=== PATIENT | male | born 1950 | race African-American/Black ===

== ENCOUNTER 2018-08-22 12:49 | Emergency (ER) | payer OTHER, BC ==
[~2018-08-22] VITALS: Ht 185.4 cm; Wt 54.4 kg
[~2018-08-22 12:49] MED LIST: ADULT LOW DOSE81 MG PO; ALBUTEROL2.5 MG/31 INH; ASPIRIN325 PO; BACITRACIN15 GM; CARAFATE 1 GM TA1 G1 PO; CARISOPRODOL350 MG PO; COMBIVENT IH; DARVOCET-N 1001 EACH PO; DARVON-N100 MG PO; DEXILANT60 MG PO; ENSURE PLUS237 ML PO; FERREX 150150 MG PO; FISH OIL 1,0001 EAC5 PO; FLONASE 0.05%50 MCG NASAL; HYDROCODONE-AP1 EA11 PO; HYDROXYCHLOROQ200 M1 PO; KAPIDEX60 MG PO; LIORESAL 10 MG10 MG PO; LOPRESSOR 50 MG50 M1 PO; LORAZEPAM 0.50.5 MG PO; LOSARTAN-HCTZ1 EACH PO; MAGNESIUM100 MG PO; MEGESTROL400 MG/11 PO; MIRALAX17 GM PO; MULTIVITAMINS PO; NORCO 5-325 TA1 EACH PO; PERCOCET 5-3251 EACH PO; PERCOCET 7.5-31 EACH PO; PROTONIX40 M2 PO; REMERON 30 MG T30 M1 PO; RESTORIL30 MG PO; SERTRALINE HCL100 MG PO; SPIRIVA INH; SYMBICORT160 MCG/4. INH; TOPROL XL25 MG PO; VENTOLIN HFA 1818 GM INH; ZENPEP DR 20,01 EACH PO; ZOCOR 20 MG TAB20 M1 PO
[2018-08-22 14:03] LABS: HEMATOCRIT 36.5 % (42.0-52.0); HEMOGLOBIN 11.6 gm/dL (14.0-18.0); MCH 29.3 pg (26.0-34.0); MCHC 31.8 g/dL (28.0-37.0); MCV 92.2 fL (80.0-100.0); PLATELET COUNT 192 thou/uL (150-400); RBC 3.95 mil/uL (4.50-6.00); RDW 19.2 % (10.5-14.5); WBC 8.7 thou/uL (4.0-11.0)
[2018-08-22 14:05] LABS: ANION GAP 8 mmol/L (7-16); BUN 25 mg/dL (7-18); CALCIUM 9.3 mg/dL (8.5-10.1); CHLORIDE 106 mmol/L (98-107); CO2 28 mmol/L (21-32); CREATININE 1.5 mg/dL (0.7-1.3); GLUCOSE 164 mg/dL (74-106); POTASSIUM 4.1 mmol/L (3.5-5.1); SODIUM 142 mmol/L (136-145)
[2018-08-22 14:16] LABS: ALBUMIN 4.1 g/dL (3.4-5.0); LIPASE 108 U/L (73-393); MAGNESIUM 1.9 mg/dL (1.8-2.4); SGOT 34 U/L (15-37); SGPT 55 U/L (30-65); TOTAL BILIRUBIN 0.3 mg/dL (<0.1-1.0); TOTAL PROTEIN 8.3 g/dL (6.4-8.2); TROPONIN-I <0.06 ng/mL (<0.06)
[2018-08-22 14:37] LABS: ABSOLUTE NEUTROPHILS 7.4 thou/uL (1.4-8.2)
[2018-08-22 14:38] LABS: ANISOCYTOSIS 2+; SCHISTOCYTES OCCASIONAL
[2018-08-22] MEDS ORDERED: NORCO 5-325 TA1 EAC1 PO (15:26)
[2018-08-22] MEDS ORDERED: ONDANSETRON ODT8 MG PO (15:26)
[2018-08-22] MEDS ORDERED: PREDNISONE 20 M20 MG PO (15:26)
[2018-08-22] MEDS ORDERED: LEVAQUIN 500 M500 M1 PO (15:26)
[2018-08-22 16:15] VITALS: BP 153/88
--- NOTE | 2018-08-23 11:51 | EKG ---
[address] [address] [address] [place] [address] ELECTROCARDIOGRAM REPORT Name: VICTOR HUGO LOPEZ Room #: DEP Monica#: [id number] ������������������ Admission: 08/22/18 ������������������ Attend Phys: Discharge: 08/22/18 ������������������ Date of : 46 Report #: [id number] ����������������������������������������������������������������� [id number] THIS REPORT FOR: //name// 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: : 1950 Requested By: Delbert Felix Order Number: [id number] MD: Gigi Cook Measurements Intervals [place] Rate: 91 P: 89 DC: 162 QRS: 96 QRSD: 205 T: 79 QT: 367 QTc: 452 Interpretive Statements Sinus rhythm Biatrial enlargement Anteroseptal infarct, age indeterminate Nonspecific ST segment abnormalities Compared to ECG 07/05/2010 09:46:22 Myocardial infarct finding still present Electronically Signed On 08-23-2018 11:51:35 CDT by Gigi Cook [email or web address] ��������������������������������������������� <ELECTRONICALLY SIGNED> ���������������������������������������� By: Gigi Cook MD ��������������������������������������������� 08/23/18 1151 D: 06/1316 16 Gigi Cook MD /RAQUEL
== END 2018-08-22 16:15 | disposition home or self-care (01) ==
LOC: ER 12:49
PROVIDERS: Emergency Medicine
DX: K52.9 Noninfective gastroenteritis and colitis, unspecified (principal); J44.1 Chronic obstructive pulmonary disease with (acute) exacerbation; J20.9 Acute bronchitis, unspecified; J44.0 Chronic obstructive pulmonary disease with (acute) lower respiratory infection; R73.9 Hyperglycemia, unspecified; G89.29 Other chronic pain; I25.2 Old myocardial infarction; I73.9 Peripheral vascular disease, unspecified; I12.9 Hypertensive chronic kidney disease with stage 1 through stage 4 chronic kidney disease, or unspecified chronic kidney disease; N18.9 Chronic kidney disease, unspecified; M06.9 Rheumatoid arthritis, unspecified; Z95.5 Presence of coronary angioplasty implant and graft; Z87.11 Personal history of peptic ulcer disease; Z87.891 Personal history of nicotine dependence; Z88.2 Allergy status to sulfonamides; Z88.5 Allergy status to narcotic agent; Z88.8 Allergy status to other drugs, medicaments and biological substances; Z91.041 Radiographic dye allergy status; Z79.899 Other long term (current) drug therapy

== ENCOUNTER 2019-07-30 10:36 | Inpatient (IN) | payer OTHER, BC ==
[~2019-07-30] VITALS: Ht 185.4 cm; Wt 50.8 kg
[~2019-07-30 10:36] MED LIST changes: +LEVAQUIN 500 M500 M1 PO; +NORCO 5-325 TA1 EAC1 PO; +ONDANSETRON ODT8 MG PO; +PREDNISONE 20 M20 MG PO
[2019-07-30 10:38] VITALS: BP 174/93
[2019-07-30] MEDS ORDERED: MORPHABOND ER15 MG PO (10:54)
[2019-07-30 11:36] LABS: MCHC 32.8 g/dL (28.0-37.0); MONOCYTES 10.7 % (1.0-8.0); POLYS 63.2 % (36.0-66.0)
[2019-07-30 11:37] LABS: ABSOLUTE NEUTROPHILS 4.3 thou/uL (1.4-8.2); BASOPHILS 0.9 % (0.0-2.0); LYMPHOCYTES 16.2 % (24.0-44.0); MCH 29.1 pg (26.0-34.0); MCV 88.7 fL (80.0-100.0); PLATELET COUNT 170 thou/uL (150-400); RBC 2.08 mil/uL (4.50-6.00); RDW 16.4 % (10.5-14.5); WBC 6.8 thou/uL (4.0-11.0)
[2019-07-30 11:42] LABS: HEMOGLOBIN 6.1 gm/dL (14.0-18.0)
[2019-07-30 11:43] LABS: HEMATOCRIT 18.5 % (42.0-52.0)
[2019-07-30 11:54] LABS: ANION GAP 6 mmol/L (7-16); APTT 27.3 Seconds (24.5-32.8); BUN 26 mg/dL (7-18); CALCIUM 8.3 mg/dL (8.5-10.1); CHLORIDE 107 mmol/L (98-107); CO2 27 mmol/L (21-32); CREATININE 1.5 mg/dL (0.7-1.3); GLUCOSE 136 mg/dL (74-106); INR 1.2; POTASSIUM 4.5 mmol/L (3.5-5.1); PROTIME 11.8 Seconds (9.3-11.4); SODIUM 140 mmol/L (136-145)
[2019-07-30 12:05] LABS: ALBUMIN 3.7 g/dL (3.4-5.0); MAGNESIUM 1.8 mg/dL (1.8-2.4); SGOT 21 U/L (15-37); SGPT 20 U/L (30-65); TOTAL BILIRUBIN 0.2 mg/dL (<0.1-1.0); TOTAL PROTEIN 7.1 g/dL (6.4-8.2); TROPONIN-I <0.06 ng/mL (<0.06)
[2019-07-30 12:19] VITALS: BP 158/91
[2019-07-30 13:19] VITALS: BP 122/89
[2019-07-30 14:00] VITALS: BP 165/85
[2019-07-30 14:45] LABS: % SATURATION 24 % (20-39); IRON 47 ug/dL (65-175); TIBC 196 ug/dL (250-450)
--- NOTE | 2019-07-30 15:11 | NUR ---
14:30 PT. ARRIVED FROM THE ER TO UNIT. IV IN RIGHT AC INTACT AND FLUSHED WELL UPON ARRIVAL. PT. DENIES ANY CHEST PAIN AT THIS TIME, "JUST A LITLE LIGHT HEADED SOMETIMES". TRANSFUSION IS PENDING AND WILL ADMINISTER SOON POSSIBLE. PT. IS COLD BLANKETS APPLIED. PT. DENIES ANY NAUSEA AT PRESENT.
--- NOTE | 2019-07-30 15:14 | NUR ---
BLOOD TRANSUFION HAS STARTED, NO SIGN'S OF A REACTION. DENIES ANY CHEST PAIN AT THIS TIME, NO NAUSEA OR VOMITING EITHER. CONSULT FROM HEMATOLOGY GROUP CALLED AND RETURNED AT THIS TIME, MD WILL ROUND ON PT. IN AM.
[2019-07-30 16:00] VITALS: BP 147/84
--- NOTE | 2019-07-30 18:11 | NUR ---
BLOOD TRANSFUSION IS COMPLETE AT THIS TIME SHOWS NO SIGN'S OF ANY REACTION, VITAL SIGN'S WNL AND BASELINE. DENIES ANY CHEST PAIN AND NO SOB. USES RESCUE INHALER THAT HE BROUGHT IN HE SAID "SOMETIMES". UP EATING DINNER NOW, MORE PERKY IN AFFECT, NO SO TIRED ACTING ANYMORE. WATCHING TV DENIES ANY GI DISCOMFORT.
[2019-07-30 19:05] VITALS: BP 156/87
[2019-07-30] MEDS ORDERED: TRAZODONE HCL100 MG PO (20:47)
[2019-07-30 21:27] LABS: HEMATOCRIT 23.5 % (42.0-52.0); HEMOGLOBIN 7.7 gm/dL (14.0-18.0)
[2019-07-31] VITALS (9 sets, daily range): BP systolic 134–173; BP diastolic 74–93
--- NOTE | 2019-07-31 04:22 | NUR ---
PT AOX4. NO EVENTS OVERNIGHT. DENIES CHEST PAIN, DIZZINESS OR SOB. PT HAD 1 UNIT TRANSFUSION YESTERDAY, WITHOUT H&H RECHECK. NOC MORTGAGE LOAN OFFICER ORIGINATOR NOTIFIED, RECHECK H&H, HEMOGLOBIN 7.7. PT VOIDING PER URINAL. INDEPENDENT IN HIS ROOM. WILL CONTINUE TO FOLLOW POC.
[2019-07-31 05:18] LABS: HEMOGLOBIN 6.8 gm/dL (14.0-18.0)
[2019-07-31 05:21] LABS: HEMATOCRIT 20.4 % (42.0-52.0); MCH 29.9 pg (26.0-34.0); MCHC 33.3 g/dL (28.0-37.0); MCV 89.7 fL (80.0-100.0); RBC 2.27 mil/uL (4.50-6.00); RDW 16.4 % (10.5-14.5); WBC 6.2 thou/uL (4.0-11.0)
[2019-07-31 05:24] LABS: CREATININE 1.1 mg/dL (0.7-1.3); POTASSIUM 4.6 mmol/L (3.5-5.1)
--- NOTE | 2019-07-31 10:58 | EKG ---
[facility] [place] [address] ELECTROCARDIOGRAM REPORT Name: VICTOR HUGO LOPEZ Room #: 206-P ADM IN M.R.#: [id number] Admission: 07/30/19 Attend Phys: Jordan Pelaez MD Discharge: Date of : 46 Report #: [id number] THIS REPORT FOR: cc: Tone Oconnor MD, Harry MD Park, Jin S. 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: [facility] : 1950 Requested By: Delbert Felix Order Number: [id number] MD: Gigi Cook Measurements Intervals [place] Rate: 87 P: 82 NM: 163 QRS: 81 QRSD: 134 T: 79 QT: 362 QTc: 436 Interpretive Statements Sinus rhythm Consider right atrial enlargement Probable left ventricular hypertrophy Nonspecific ST segment abnormalities Compared to ECG 08/22/2018 13:17:06 Left ventricular hypertrophy now present Myocardial infarct finding still present Electronically Signed On 07-31-2019 10:56:05 CDT by Gigi Cook [email or web address] <ELECTRONICALLY SIGNED> By: Gigi Cook MD 07/31/19 1056 1143 1143 Gigi Cook MD /EPI
[2019-07-31 15:02] LABS: HEMATOCRIT 25.8 % (42.0-52.0); HEMOGLOBIN 8.7 gm/dL (14.0-18.0)
--- NOTE | 2019-07-31 17:43 | NUR ---
PT CARE ASSUMED AT 0700. ASSESSMENTS CHARTED. MEDICATION CHARTED. PT RECIEVED 1 UNIT RBC STARTING 1050, ENDING 1515, NO REACTION. PT RECEIVED EPOETIN INJ. PT DISCHARGED. TELE D/C'D. IV D/C'D.
--- NOTE | 2019-08-03 09:33 | HC ---
[facility] [place] [address] CONSULTATION Name: VICTOR HUGO LOPEZ Room #: 206-P [facility] IN M.R.#: [id number] Admission: 07/30/19 Attend Phys: Jordan Pelaez MD Discharge: 07/31/19 Date of : 46 Report #: [id number] THIS REPORT FOR: cc: Tone Oconnor MD, Harry MD McKittrick, Richard James MD ~ CC: JEREMY ROQUE MD REQUESTING PHYSICIAN: Jordan Pelaez MD REASON FOR CONSULTATION: Iron deficiency anemia as well as chronic kidney disease related anemia. 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 He follows with Dr. Rosita Basilio. His last darbepoetin injection was on 05/26/2019. He was a no show for an appointment in 04/26/2019, has not had his EPO since that April date. It may be because of coronavirus shut down that things were discombobulated. The patient reports his last IV iron was some time in either 2019 or 2018. Note that his blood tests here show iron replete state. Retic count was not drawn before the transfusion, so I cannot assess, but most likely this is an under production or hypoproliferative anemia. The patient denies any recent blood in his urine or stool, any black tarry stool, any hematemesis or nosebleeds. He also has not had any unusual headaches, mouth sores, sinus difficulties, new arm or leg swelling. He does have some chronic right leg swelling occasionally. He does have occasional loose bowel thought to be from chronic pancreatic insufficiency from chronic pancreatitis in the past. 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 SOCIAL HISTORY: Retired from [employer] as an investigative agent, has a support of at home by his description. [address] [address] CONSULTATION Name: VICTOR HUGO LOPEZ Room #: 206-P [facility] IN [facility].#: [id number] Admission: 07/30/19 Attend Phys: Jordan Pelaez MD Discharge: 07/31/19 Date of : 46 Report #: [id number] FAMILY HISTORY: No one else with blood issues by his description. CURRENT MEDICATIONS: Include trazodone 100 mg at bedtime, albuterol sulfate, respiratory therapy q.i.d., morphine extended release 15 b.i.d., baclofen 5 b.i.d., famotidine 10 b.i.d., vggivn-kbiamgbs-gdvpcer 3 capsule with meals, ondansetron p.r.n., fentanyl p.r.n., Tylenol p.r.n., written for the epoetin 40,000 units one time. Note, also in the past outside he has been on losartan, hydrochlorothiazide, Protonix, MiraLax, Symbicort, and fluticasone nasal spray as well as hydroxychloroquine 200 mg daily. LABORATORY DATA: Here was notable for BUN of 18, creatinine of 1.1, bilirubin 0.2. Liver functions normal. Albumin 3.7, iron of 47, percent saturation 24, TIBC 196. C-reactive protein 11.8. Coags were normal. White count 6.2, hemoglobin on admit 6.1. Transfuse 7.7 last night, 6.8 this morning with plans for another unit of blood. MCV 88.7 on admit. RDW 16.4, platelets 170 yesterday, 149 today. Differential without acute changes. Did have a few extra monocytes and eosinophils. PHYSICAL EXAMINATION: GENERAL: The patient appears his stated age. VITAL SIGNS: Height is 6 feet 1, 185.4 cm, weight 112 pounds or 50.8 kilograms. Blood pressure is 173/93, O2 sat 100%, pulse 87, afebrile at 98.8, respirations 16. MOOD: The patient is alert, pleasant, conversant. NEUROLOGIC: He is moving all extremities. Speech and thought pattern appear to be normal. LUNGS: Mostly clear, though slightly distant. No definite rhonchi or rales. HEART: Appears regular rate. LYMPHATICS: No enlarged lymph nodes, though some very small smudges underneath the right axilla but that is the site of his IVs. ABDOMEN: Scaphoid without masses. EXTREMITIES: Without clubbing or cyanosis. There may be some trace edema, right leg. ASSESSMENT AND PLAN: 1. Anemia related to iron deficiency in the past and also chronic kidney disease. The patient's iron appears were replete, probably anemia is most likely contributory due to several missed doses of erythropoietin agents. We will write for 40,000 units one time. No plans for transfusion. Will be able to follow up as an outpatient with Dr. Rosita Basilio or someone in his office. 2. Emphysema and chronic obstructive pulmonary disease. Continues inhalation therapy, medicines as well as oxygen supplementation. 3. Pancreatic insufficiency. Continue enzyme replacements with meals. 4. History of peptic ulcer disease. Continue acid gabe agents. [facility] [address] [place] [address] CONSULTATION Name: VICTOR HUGO LOPEZ Room #: 206-P [facility] IN ..#: [id number] Admission: 07/30/19 Attend Phys: Jordan Pelaez MD Discharge: 07/31/19 Date of : 46 Report #: [id number] 5. Renal insufficiency and proteinuria. Follows with renal at . 6. Rheumatoid arthritis. Continues hydroxychloroquine with Dr. Lillie Bolivar. 7. Chronic obstructive pulmonary disease, emphysema. Follows with Dr. Richardson Roque. 8. Coronary artery disease with coronary artery bypass graft in the past and peripheral vascular disease. Followed by others. 9. Hyperlipidemia. Statins as per others. 10. Chronic pain. Morphine and baclofen per others. Thank you for this consult. The patient should follow up with Dr. Rosita Basilio or his office upon discharge. <ELECTRONICALLY SIGNED> By: Zacarias Miramontes MD 08/03/19 0933 0814 0849 Zacarias Miramontes MD /nt
== END 2019-07-31 17:18 | disposition home or self-care (01) | DRG 812 ==
LOC: ER 10:36 → EROBS 12:17 → 2N 12:38
PROVIDERS: Emergency Medicine; Nurse Practitioner; Nurse Practitioner Family; ADMIT Hospitalist
PROC: 30233N1 Transfusion of Nonautologous Red Blood Cells into Peripheral Vein, Percutaneous Approach (ICD-10-PCS; principal; 2019-07-30)
DX: D50.9 Iron deficiency anemia, unspecified (principal); K86.1 Other chronic pancreatitis; D62 Acute posthemorrhagic anemia; F41.9 Anxiety disorder, unspecified; N18.9 Chronic kidney disease, unspecified; M06.9 Rheumatoid arthritis, unspecified; I73.9 Peripheral vascular disease, unspecified; E78.5 Hyperlipidemia, unspecified; J43.9 Emphysema, unspecified; K86.89 Other specified diseases of pancreas; I25.10 Atherosclerotic heart disease of native coronary artery without angina pectoris; G89.29 Other chronic pain; F12.90 Cannabis use, unspecified, uncomplicated; D63.1 Anemia in chronic kidney disease; I12.9 Hypertensive chronic kidney disease with stage 1 through stage 4 chronic kidney disease, or unspecified chronic kidney disease; D75.89 Other specified diseases of blood and blood-forming organs; Z90.49 Acquired absence of other specified parts of digestive tract; Z86.73 Personal history of transient ischemic attack (TIA), and cerebral infarction without residual deficits; Z95.1 Presence of aortocoronary bypass graft; I25.2 Old myocardial infarction; Z88.2 Allergy status to sulfonamides; Z88.8 Allergy status to other drugs, medicaments and biological substances; Z88.6 Allergy status to analgesic agent; Z91.041 Radiographic dye allergy status; Z87.891 Personal history of nicotine dependence; Z87.11 Personal history of peptic ulcer disease
CPT/HCPCS: 10081

== ENCOUNTER 2019-12-02 19:05 | Inpatient (IN) | payer OTHER, BC ==
[~2019-12-02] VITALS: Ht 185.4 cm; Wt 44.9 kg
--- NOTE | ~2019-12-02 | EKG ---
[facility] [place] [address] ELECTROCARDIOGRAM REPORT Name: VICTOR HUGO LOPEZ DEAN Room #: 213-P ADM IN M.R.#: [id number] Admission: 12/02/19 Attend Phys: Carine Augustine MD Discharge: Date of : 46 Report #: [id number] THIS REPORT FOR: cc: Emy Chu MD, Shari L. MD Epiphany, Epiphany MD ~ THIS REPORT FOR: //name// [facility] Test Date: 2019-12-04 Test Time: 06:36:05 Pat Name: VICTOR HUGO LOPEZ Department: Room: 213 P Gender: M [place] Guide: AN01 : 1950 Requested By: Carine Augustine Order Number: [id number] MD: Measurements Intervals [place] Rate: 95 P: 82 [place]: 146 QRS: 73 QRSD: 80 T: 62 QT: 360 QTc: 453 Interpretive Statements Sinus rhythm Low voltage, extremity leads Probable anteroseptal infarct, old Compared to ECG 12/02/2019 19:23:15 Low QRS voltage now present Sinus tachycardia no longer present Myocardial infarct finding still present [email or web address] By: [id number] [id number] Epiphany Epiphany, [place] /EPI
[~2019-12-02 19:05] MED LIST changes: +MORPHABOND ER15 MG PO; +TRAZODONE HCL100 MG PO
[2019-12-02 19:12] VITALS: BP 116/79
[2019-12-02 19:43] LABS: ABSOLUTE NEUTROPHILS 5.5 thou/uL (1.4-8.2); BASOPHILS 0.7 % (0.0-2.0); EOSINOPHILS 0.5 % (0.0-3.0); HEMOGLOBIN 10.3 gm/dL (14.0-18.0); MCHC 32.1 g/dL (28.0-37.0); MCV 90.3 fL (80.0-100.0); MONOCYTES 5.7 % (1.0-8.0); PLATELET COUNT 185 thou/uL (150-400); POLYS 84.1 % (36.0-66.0); RBC 3.54 mil/uL (4.50-6.00); RDW 16.7 % (10.5-14.5); WBC 6.5 thou/uL (4.0-11.0)
[2019-12-02 19:46] LABS: ANION GAP 15 mmol/L (7-16); BUN 55 mg/dL (7-18); CALCIUM 8.8 mg/dL (8.5-10.1); CHLORIDE 100 mmol/L (98-107); CO2 24 mmol/L (21-32); CREATININE 3.2 mg/dL (0.7-1.3); GLUCOSE 104 mg/dL (74-106); POTASSIUM 5.6 mmol/L (3.5-5.1); SODIUM 139 mmol/L (136-145)
[2019-12-02] MEDS ORDERED: NORVASC 2.5 MG2.5 M1 PO (19:47)
[2019-12-02] MEDS ORDERED: BENICAR20 MG PO (19:47)
[2019-12-02 19:57] LABS: ALBUMIN 4.1 g/dL (3.4-5.0); LIPASE 59 U/L (73-393); SGOT 16 U/L (15-37); SGPT 14 U/L (30-65); TOTAL BILIRUBIN 0.5 mg/dL (0.2-1.0); TOTAL PROTEIN 8.2 g/dL (6.4-8.2); TROPONIN-I <0.06 ng/mL (<0.06)
[2019-12-02 21:01] LABS: URINE BILIRUBIN 1+ (Negative); URINE BLOOD TRACE (Negative); URINE CLARITY CLEAR; URINE COLOR YELLOW; URINE GLUCOSE-RANDOM* NEGATIVE (Negative); URINE KETONES TRACE (Negative); URINE LEUKOCYTES-REFLEX NEGATIVE (Negative); URINE NITRITE-REFLEX NEGATIVE (Negative); URINE PROTEIN (DIPSTICK) 2+ (Negative); URINE SPECIFIC GRAVITY 1.025 (1.005-1.035); URINE UROBILINOGEN 0.2 E.U./dl (0.2-1.0)
[2019-12-02 21:13] LABS: SQUAMOUS 0-3 Few /LPF (0-3); URINE WBC-REFLEX 0-5 Rare /HPF (0-5)
[2019-12-02 21:14] LABS: BACTERIA-REFLEX 1-9 Few /HPF (None Seen); CRYSTALS None Seen /LPF (None Seen); FINE GRANULAR CASTS 0-3 Few /LPF (None Seen); HYALINE CASTS 0-3 Few /LPF (None Seen); MUCUS 0-3 Light strn/LPF (None Seen); URINE RBC 3-10 Few /HPF (0-2)
[2019-12-02 22:01] VITALS: BP 149/86
[2019-12-02 22:03] VITALS: BP 149/86
--- NOTE | 2019-12-02 22:17 | NUR ---
Called to give report but was told RN is busy and will call back
[2019-12-02 23:24] VITALS: BP 141/88
--- NOTE | 2019-12-03 03:16 | NUR ---
PT NEW ADMIT LAST NIGHT. ALERT AND ORIENTED. INITIAL VITALS STABLE. C/O ABDOMINAL PAIN RATED AT 9/10. DENIES CHEST PAIN. REPORTS PREVIOUS NAUSEA AND VOMITING IN THE LAST FEW DAYS NO WITHNESSED ON THE UNIT. CONSENT FORMS SIGNED. PT HAS A SBO, KEPT NPO OVERNIGHT. WILL CONTINUE TO MONITOR
[2019-12-03 03:32] VITALS: BP 152/85
[2019-12-03 04:10] LABS: HEMATOCRIT 23.6 % (42.0-52.0); MCH 29.7 pg (26.0-34.0); MCHC 32.9 g/dL (28.0-37.0); MCV 90.4 fL (80.0-100.0); RBC 2.61 mil/uL (4.50-6.00); RDW 16.4 % (10.5-14.5); WBC 6.1 thou/uL (4.0-11.0)
[2019-12-03 04:34] LABS: HEMOGLOBIN 7.8 gm/dL (14.0-18.0)
[2019-12-03 05:57] LABS: CALCIUM 7.9 mg/dL (8.5-10.1); CREATININE 2.9 mg/dL (0.7-1.3); POTASSIUM 5.2 mmol/L (3.5-5.1)
--- NOTE | 2019-12-03 07:44 | EKG ---
[facility] [place] [address] ELECTROCARDIOGRAM REPORT Name: VICTOR HUGO LOPEZRODRIGUEDORON Room #: 213-P ADM IN M.R.#: [id number] Admission: 12/02/19 Attend Phys: Carine Augustine MD Discharge: Date of : 46 Report #: [id number] THIS REPORT FOR: cc: Emy Chu MD, Shari L. 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1950 Requested By: Augustin Doe Order Number: [id number] MD: Feed Kam Measurements Intervals [place] Rate: 111 P: 83 [place]: 150 QRS: 67 QRSD: 77 T: 66 QT: 314 QTc: 427 Interpretive Statements Sinus tachycardia LAE, consider biatrial enlargement Anterior infarct, old Compared to ECG 07/30/2019 11:43:54 Sinus rhythm no longer present Electronically Signed On 12-03-2019 7:44:37 CDT by Fede Kam [email or web address] <ELECTRONICALLY SIGNED> By: Fede Kam MD, [facility] 12/03/19 0744 22 22 Fede Kam MD, [facility] /EPI
[2019-12-03 07:49] VITALS: BP 148/78
[2019-12-03 09:30] LABS: HEMATOCRIT 24.4 % (42.0-52.0); HEMOGLOBIN 7.8 gm/dL (14.0-18.0)
[2019-12-03 12:59] VITALS: BP 141/75
--- NOTE | 2019-12-03 13:53 | NUR ---
ATTEMPTED OT EVAL AT 1345, PT. PARTICIPATED IN PLOF INTERVIEW AND ALLOWED MMT AND ROM ASSESSMENT. REFUSING TO PARTICIPATE IN FUNCTIONAL MOBILITY AND SELF-CARES ASSESSMENT. WILL RE-ATTEMPT TOMORROW.
--- NOTE | 2019-12-03 17:01 | NUR ---
ASSESSMENT CHARTED. PT ALERT AND ORIENTED. VSS. RECEIVED PRN PAIN MED FOR ABD PAIN WITH PARTIAL RELEIF. SEEN BY DR. WU. NEW ORDERS NOTED. NG TUBE INSERTED ON THE RIGHT NARES TO LIS. AT THE BEDSIDE.
--- NOTE | 2019-12-03 17:14 | NUR ---
Case opened to follow for dc planning. Case discussed with the care team and chart reveiwed. Pt admitted with multiple medication issues and complex medical history. He is being seen by CTS,Surgery, GI,Renal and IR. Possible surgery due to SBO with a large complex hematoma. Unable to visit with pt today due to workup and consultants. [place] 13 steps to enter. He lives with his who has been at bedside throughout the day. He was evaluated by therapy today and is a chronic home o2 pt due to copd. He uses 4liters at home and has a cane for gait. Will follow for possible hh or rehab needs pending his progress.
[2019-12-03 17:23] LABS: HEMATOCRIT 23.7 % (42.0-52.0); HEMOGLOBIN 7.4 gm/dL (14.0-18.0)
[2019-12-03 20:15] VITALS: BP 153/84
[2019-12-03 20:40] LABS: URINE BILIRUBIN NEGATIVE (Negative); URINE BLOOD TRACE (Negative); URINE CLARITY CLEAR; URINE COLOR YELLOW; URINE GLUCOSE-RANDOM* NEGATIVE (Negative); URINE KETONES 1+ (Negative); URINE LEUKOCYTES NEGATIVE (Negative); URINE NITRITE NEGATIVE (Negative); URINE PROTEIN (DIPSTICK) TRACE (Negative); URINE UROBILINOGEN 0.2 E.U./dl (0.2-1.0)
[2019-12-03 20:46] LABS: URINE PROTEIN-RANDOM* 42.6 mg/dL (<11.9)
[2019-12-04 01:01] LABS: HEMATOCRIT 24.9 % (42.0-52.0); HEMOGLOBIN 7.6 gm/dL (14.0-18.0)
[2019-12-04 01:13] LABS: ALBUMIN 3.2 g/dL (3.4-5.0); CALCIUM 7.8 mg/dL (8.5-10.1); CREATININE 2.4 mg/dL (0.7-1.3); PHOSPHORUS 4.1 mg/dL (2.5-4.9)
--- NOTE | 2019-12-04 03:34 | NUR ---
CARE ASSUMED AT 1900. PT NPO DUE TO SBO. C/O ABDOMINAL PAIN, ALLEVIATED BY PRN ANALGESICS. NG TUBE TO LOW INTERMITTENT SUCTIONING WITH MINIMAL OUTPUT. DENIES CHEST PAIN, NAUSEA OR VOMITING. WILL CONTINUE TO MONITOR.
[2019-12-04 04:00] VITALS: BP 148/82
[2019-12-04 07:38] VITALS: BP 150/81
[2019-12-04 12:07] VITALS: BP 146/73
[2019-12-04 15:55] VITALS: BP 149/78
--- NOTE | 2019-12-04 17:42 | NUR ---
PT ALERT AND ORIENTED. VSS. NG TUBE DISCONTINUED. UP IN THE CHAIR THIS SHIFT. AT THE BEDSIDE. WILL CONTIUE WITH THE PLAN OF CARE.
[2019-12-04 19:49] VITALS: BP 134/89
[2019-12-04 20:00] VITALS: BP 116/41
[2019-12-05 03:30] VITALS: BP 155/80
[2019-12-05 04:50] LABS: ALBUMIN 3.2 g/dL (3.4-5.0); CALCIUM 8.2 mg/dL (8.5-10.1); CREATININE 1.8 mg/dL (0.7-1.3); PHOSPHORUS 3.4 mg/dL (2.5-4.9); POTASSIUM 4.8 mmol/L (3.5-5.1)
--- NOTE | 2019-12-05 04:54 | NUR ---
ASSUMED CARE 1899. PT ALERT AND ORIENTED. NG TUBE DC'd YESTERDAY. PT STILL C/O ABDOMINAL PAIN ALLEVIATED BY PRN PAIN MEDS. RECEIVED A SUPPOSITORY YESTERDAY, STILL AWAIT FOR RESULTS. DENIES NAUSEA AND VOMITING. REPORTS MINIMAL EPIGASTRIC PAIN WHILE GETTING UP. NO OTHER CONCERN AT THIS TIME. WILL FOLLOW POC.
[2019-12-05 08:00] VITALS: BP 147/76
--- NOTE | 2019-12-05 17:51 | NUR ---
PT ALERT AND ORIENTED. VSS. PRN PAIN MED GIVEN FOR ABD PAIN WITH PARTIAL RELIEF. STARTED ON CLEAR LIQUID. HAD EMESIS X1. PROVIDER AWARE. SR/ST ON TELE.
[2019-12-05 19:58] VITALS: BP 164/80
[2019-12-06 04:55] LABS: CALCIUM 8.1 mg/dL (8.5-10.1); CREATININE 1.5 mg/dL (0.7-1.3); POTASSIUM 4.4 mmol/L (3.5-5.1); TOTAL BILIRUBIN 0.4 mg/dL (0.2-1.0); TOTAL PROTEIN 6.7 g/dL (6.4-8.2)
[2019-12-06 05:15] VITALS: BP 184/98
[2019-12-06 05:18] LABS: ALBUMIN 3.3 g/dL (3.4-5.0)
--- NOTE | 2019-12-06 07:33 | NUR ---
PT WITH CON'T C/O ABD PAIN, PRN MEDS GIVEN THRU THE NOC, VSS HR ST AND BP ELEVATED BP MED GIVEN EARLY THIS AM, FLUIDS INFUSING IN R FA AND PT VOIDING PER URINAL, TOLERATING CLEAR LIQUID DIET, REPORT GIVEN TO NEXT SHIFT TO CON'T WITH PPOC.
[2019-12-06 10:52] VITALS: BP 178/95
--- NOTE | 2019-12-06 13:00 | NUR ---
Pt voices no food intake since 11/26 (9 days), taking in very little liquids. May need to consider TPN as pt is severely malnourished and has no interest in eating or drinking.
[2019-12-06 16:00] VITALS: BP 149/91
[2019-12-06 17:17] LABS: CALCIUM 7.8 mg/dL (8.5-10.1); CREATININE 1.9 mg/dL (0.7-1.3); POTASSIUM 4.4 mmol/L (3.5-5.1)
--- NOTE | 2019-12-06 19:26 | NUR ---
ASSUMED CARE AT 0700. AFEBRILE. NO BM. PATIENT ON 4L OF OXXYGEN. PRN FENTANYL GIVEN TWICE FOR SEVERE PAIN AND WAS EFFECTIVE IN ALLEVIATING PAIN. PATIENT'S WAS WITH THE PATIENT THROUGHOUT THE DAY AND WAS UPDATED AND EDUCATED ON PATIENT'S CONDITION AND PLAN OF CARE. ECHO PLANNED FOR TONIGHT. SURGERY PLANNED FOR TOMORROW AT 0830 AND PATIENT IS NPO. NO ANTICOAGULANTS GIVEN. PT/OT SAW PATIENT TODAY. STANDBY ASSIST. CARDIOLOGY CONSULTED. COVID TEST RESULTS PENDING. PATIENT SLOWLY PROGRESSING TOWARDS THE PLAN OF CARE.
[2019-12-06 20:00] VITALS: BP 156/62
--- NOTE | 2019-12-06 22:28 | 2DMMODE ---
[facility] [place] [address] 2 D/M-MODE ECHOCARDIOGRAM Name: LOPEZVICTOR HUGO MARVIN DEAN Room #: 213-P ADM IN M.R.#: [id number] Admission: 12/02/19 Attend Phys: Carine Augustine MD Discharge: Date of : 46 Report #: [id number] THIS REPORT FOR: cc: Eym Chu MD, Shari L. MD Lammoglia, Francisco J. MD ~ APPROVED REPORT Study performed: 12/06/2019 20:00:06 EXAM: Comprehensive 2D, Doppler, and color-flow Echocardiogram Patient Location: Bedside Room #: 213 Status: on-call BSA: 1.60 HR: 118 bpm BP: 149/91 mmHg Rhythm: Tachycardia Other Information Study Quality: Technically Difficult Technically limited study due to lung disease, body habitus. Indications COPD CAD Hypertension/HDD Pre-op 2D Dimensions RVDd: 31.60 mm IVSd: 12.61 (7-11mm) LVOT Diam: 19.78 (18-24mm) LVDd: 31.74 mm PWd: 12.60 (7-11mm) LVDs: 21.31 (25-40mm) Aortic Root: 32.70 mm IVC: 7.00 mm Volumes Left Atrial Volume (Systole) Single Plane 4CH: 15.66 mL Single Plane 2CH: 32.26 mL LA ESV Index: 17.00 mL/m2 Aortic Valve [facility] [address] [address] 2 D/M-MODE ECHOCARDIOGRAM Name: VICTOR HUGO LOPEZ DEAN Room #: 213- ADM IN M.R.#: [id number] Admission: 12/02/19 Attend Phys: Lauren Gorman Discharge: Date of : 46 Report #: [id number] Peak Obie.: 1.44 m/s AO Peak Gr.: 8.30 mmHg LVOT Max P.34 mmHg LVOT Max V: 1.15 m/s MANISHA Vmax: 2.46 cm2 Mitral Valve E/A Ratio: 0.6 MV Decel. Time: 103.25 ms MV E Max Obie.: 0.70 m/s MV A Obie.: 1.27 m/s MV PHT: 29.94 ms IVRT: 113.03 ms Pulmonary Valve PV Peak Obie.: 1.32 m/s PV Peak Gr.: 7.01 mmHg Tricuspid Valve RAP Estimate: 5.00 mmHg Left Ventricle The left ventricle is normal size. Mild concentric left ventricular hypertrophy. Left ventricular systolic function is hyperdynamic. Small thrombus noted in left ventricular apex. LVEF is 70%. Transmitral Doppler flow pattern suggests impaired LV relaxation. Right Ventricle The right ventricle is normal size. The right ventricular systolic function is normal. Atria The left atrium size is normal. The right atrium size is normal. Aortic Valve Aortic valve is mildly calcified. No aortic regurgitation is present. There is no aortic valvular stenosis. Mitral Valve Mild mitral annular calcification. There is no mitral valve regurgitation noted. No evidence of mitral valve stenosis. Tricuspid Valve The tricuspid valve is normal in structure. There is no tricuspid valve regurgitation noted. Unable to assess PA pressure. [facility] [address] [place] [address] 2 D/M-MODE ECHOCARDIOGRAM Name: VICTOR HUGO LOPEZ DEAN Room #: 213-[facility] IN [facility].#: [id number] Admission: 12/02/19 Attend Phys: Lauren Gorman Discharge: Date of : 46 Report #: [id number] Pulmonic Valve The pulmonary valve appears grossly normal. There is no pulmonic valvular regurgitation. Great Vessels The aortic root is normal in size. IVC is normal in size and collapses >50% with inspiration. Pericardium There is no pericardial effusion. <Conclusion> The left ventricle is normal size. LVEF is 70%. Aortic valve is mildly calcified. Mild mitral annular calcification. The tricuspid valve is normal in structure. There is no tricuspid valve regurgitation noted. Unable to assess PA pressure. The pulmonary valve appears grossly normal. There is no pericardial effusion. <ELECTRONICALLY SIGNED> By: Terell Boles MD 12/06/198 27 2228 Terell Boles MD /INF
[2019-12-07 02:08] VITALS: BP 125/86
[2019-12-07 03:54] VITALS: BP 164/99
[2019-12-07 04:08] LABS: HEMATOCRIT 26.2 % (42.0-52.0); HEMOGLOBIN 8.4 gm/dL (14.0-18.0); MCHC 32.1 g/dL (28.0-37.0); MCV 90.4 fL (80.0-100.0); RBC 2.9 mil/uL (4.50-6.00); RDW 16.3 % (10.5-14.5)
[2019-12-07 04:37] LABS: ALBUMIN 3.4 g/dL (3.4-5.0); CREATININE 1.9 mg/dL (0.7-1.3); TOTAL BILIRUBIN 0.6 mg/dL (0.2-1.0); TOTAL PROTEIN 6.5 g/dL (6.4-8.2)
[2019-12-07 04:46] LABS: MAGNESIUM 0.8 mg/dL (1.8-2.4)
--- NOTE | 2019-12-07 07:51 | NUR ---
ASSUMED CARE 1900. PT ALERT AND ORIENTED. VITALS STABLE WITH ELEVATED BP. ON SCHEDULED METOPROLOL. C/O ABDOMINAL PAIN, ALLEVIATED BY PRN FENTANYL. PT EXPRESSES CONCERNS ABOUT PENDING PROCEDURE THIS MORE.A COUPLE NAUSEA AND VOMITING EPISODE OVERNIGHT. MAINTAINED ON 4 L NC, SATS > 95. NPO SINCE MIDNIGHT. REPORTS GIVEN TO THE PRE-OP THIS AM. NO OTHER CONCERNS. .
[2019-12-07 12:00] VITALS: BP 164/99
[2019-12-07 15:40] VITALS: BP 143/81
[2019-12-07 15:55] VITALS: BP 143/81
--- NOTE | 2019-12-07 16:05 | HC ---
[facility] [place] [address] CONSULTATION Name: VICTOR HUGO LOPEZRODRIGUEDORON Room #: 213-P ADM IN M.R.#: [id number] Admission: 12/02/19 Attend Phys: Carine Augustine MD Discharge: Date of : 46 Report #: [id number] THIS REPORT FOR: cc: Emy Chu MD, Shari L. MD Forman, John M. MD ~ CC: Carine Chu DATE OF SERVICE: 12/04/2019 We were asked to see the patient by Dr. Augustine. HISTORY OF PRESENT ILLNESS: The patient is a 69-year-old with a right femoral artery aneurysm. The patient has multiple medical problems and appears to have been admitted with a small-bowel obstruction. The patient has a history of an aortobifemoral bypass approximately 10 years ago. There is a pulsatile mass in the right groin that the patient says has been followed for at least a year and this probably represents a pseudoaneurysm related to anastomotic disruption at the right femoral artery. The patient was admitted on 12/02/2019. The patient has a history of chronic pancreatitis and was seen in the Emergency Department with nausea, vomiting and abdominal pain over the last 5 days. The patient states the pain was 10/10 and similar to previous pancreatitis, discomfort, with dark black emesis. The patient also apparently had a melanotic looking stool earlier in the day. In the hospital, the patient has responded to conservative therapy of IV, NG, and p.o. Other medical problems include liver disease, peptic ulcer disease 2004, myocardial infarct with coronary bypass, bilateral carotid endarterectomy, chronic renal dysfunction, anemia requiring blood transfusions starting 05/2017. History of pancreatitis, important chronic obstructive pulmonary disease, rheumatoid arthritis. HOME MEDICATIONS: Include trazodone; omega 3 fatty acids; multivitamins; morphine; amlodipine; olmesartan; albuterol nebulizer; megestrol; budesonide; formoterol inhaler; fluticasone; hydroxychloroquine; losartan; hydrochlorothiazide; amylase, lipase, protease; pantoprazole; sertraline; tiotropium. ALLERGIES: LISINOPRIL causes hives and hypotension; PREGABALIN causes swelling, hives, hypotension; RED DYE causes hives, swelling, hypotension; CODEINE causes gut upset from ORAL SYRUP WITH CODEINE ONLY; SULFA causes GI upset. [facility] [address] [place] [address] CONSULTATION Name: VICTOR HUGO LOPEZ Room #: 213-P [facility] IN [facility]#: [id number] Admission: 12/02/19 Attend Phys: Carine Augustnie MD Discharge: Date of : 46 Report #: [id number] SOCIAL HISTORY: Former tobacco smoker, former alcohol user. REVIEW OF SYSTEMS: CONSTITUTIONAL: Denies fever, chills. Has chronic weight loss. EYES: Negative for eye pain or visual change. HENT: Negative for headache, rhinorrhea, sore throat. RESPIRATORY: Chronic obstructive pulmonary disease, but no current cough or recent shortness of breath. CARDIAC: Denies chest pain, palpitations. GASTROINTESTINAL: As mentioned in the HPI. GENITOURINARY: No burning, frequency, urgency. MUSCULOSKELETAL: No bone or joint pain. SKIN: No rash or infection. NEUROLOGIC: No motor or sensory problems. ENDOCRINE: No goiter, no tremor. HEMATOLOGIC AND LYMPHATIC: No easy bleeding or bruisability. We do note anemia. PHYSICAL EXAMINATION: GENERAL: The patient is in bed, awake, alert, seems comfortable. NG tube has been removed. VITAL SIGNS: Temperature 36.7, pulse rate 95, respiratory rate 12, blood pressure 146/73, O2 sat 100 on 4 liters. HEENT: No scleral icterus. I see no arcus. NECK: No mass. I hear no bruit. CHEST: Clear to auscultation. HEART: Rhythm regular, no murmur. ABDOMEN: Soft with quiet bowel sounds. Some tympany. EXTREMITIES: No clubbing, cyanosis or edema. VASCULAR: 2 to 3+ popliteal pulses. In the right groin, there is aneurysm, pulsatile and visible, but no particular pain, no redness or evidence of either inflammation or recent hemorrhage. PSYCHIATRIC: Oriented x 3. Shows insight into problem, has a good sense of humor given the situation. NEUROLOGIC: No motor or sensory dysfunction. MUSCULOSKELETAL: No obvious bone or joint asymmetry or deformity. The patient is quite thin, ectomorphic habitus. 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 The patient states that this has been followed for close to a year and surgery has not been done because he is thought to be at high risk for perioperative pulmonary dysfunction. I have advised the patient that there are not multiple options for treating this, we either discuss with the other consultants and find the optimal time for surgery or just watch. I suspect that [facility] [address] [facility] [place] [address] CONSULTATION Name: VICTOR HUGO LOPEZ Room #: 213-P ADM IN M.R.#: [id number] Admission: 12/02/19 Attend Phys: Carine Augustine MD Discharge: Date of : 46 Report #: [id number] the patient would be able to undergo an operation, but clearly there is increased risk of perioperative pulmonary dysfunction. In any event, we should wait until the current problem related to the admission subsides before embarking on and creating new difficulties for the patient. Thank you for the consult. <ELECTRONICALLY SIGNED> By: Cristobal Casey MD 12/07/19 1605 [id number] [id number] Cristobal Casey MD /nt
--- NOTE | 2019-12-07 19:06 | NUR ---
PT CARE ASSUMED AT 0700. ASSESSMENT CHARTED. MEDICATION CHARTED. PT TO SURGERY AT 0745 RETURNED APPROXIMATELY 0900 DUE TO ANESTHESIAS CONCERN ABOUT THE PT'S HEART. PT TO NUCLEAR MED FOR STRESS TEST; DR CEE STATES PT OKAY FOR SURGERY. PT REMAINS NPO. 4 LPM NC. TWO RFA IV'S. SINUS RHYTHM.
[2019-12-07 20:42] VITALS: BP 150/88
--- NOTE | 2019-12-08 05:05 | NUR ---
PT ALERT AND ORIENTED. NO NAUSEA OR VOMITING OVERNIGHT. DENIES CHEST PAIN. SR ON THE MONITOR. C/O ABDOMINAL , FENTANYL Q4 PRN. REPORTS BETTER PAIN MANAGEMENT WITH INCREASED DOSE . NPO SINCE MIDNIGHT. WILL CONTINUE TO MONITOR.
[2019-12-08 05:41] VITALS: BP 143/76
--- NOTE | 2019-12-08 08:07 | NUR ---
Pt severely malnourished and very minimal oral intake for past 11 days. Recommend start tpn at 30ml/hr with goal 65ml/hr (15%dex, 5%AA, and 2.9% lipids). Avoid risk of refeeding syndrome, slow tpn rate advance and monitor and replace K/Phos/Mg as appropriate.
[2019-12-08 08:10] LABS: HEMATOCRIT 23.8 % (42.0-52.0); HEMOGLOBIN 7.6 gm/dL (14.0-18.0); MCH 28.7 pg (26.0-34.0); MCV 89.6 fL (80.0-100.0); RBC 2.66 mil/uL (4.50-6.00); RDW 16.1 % (10.5-14.5); WBC 7.9 thou/uL (4.0-11.0)
[2019-12-08 08:15] VITALS: BP 125/63
[2019-12-08 08:28] LABS: CALCIUM 7.8 mg/dL (8.5-10.1); CREATININE 1.8 mg/dL (0.7-1.3); MAGNESIUM 2.4 mg/dL (1.8-2.4); POTASSIUM 3.4 mmol/L (3.5-5.1)
[2019-12-08 12:25] VITALS: BP 143/80
[2019-12-08 15:12] VITALS: BP 144/78
--- NOTE | 2019-12-08 16:06 | NUR ---
Patient worked with therapy today. He plans home with HH care. He has home oxygen at 4 liters at home. Discussed with and patient HH at discharge and home pallative care. has brochures to review. Patient anxious to dc home.
--- NOTE | 2019-12-08 18:03 | NUR ---
ASSESSMENT CHARTED. PT ALERT AND ORIENTED. VSS. PRN PAIN MED GIVEN WITH PARTIAL RELEIF. HAD THREE BM THIS SHIFT. STARTED ON SOFT DIET. SR/ST ON TELE. NO CONCERNS AT THIS TIME. PROGRESSING WELL TOWARDS DISCHARGE GOAL.
[2019-12-08 19:30] VITALS: BP 151/82
--- NOTE | 2019-12-09 03:23 | NUR ---
assumed pt care at the chnage of shift, pt is awake, alert and oriented, pleasant, makes needs known, nausea and vomitingx2 at the change of shift, zofran given with relief, sr on the monitor, complained of abdominal pain of a 10/10, pain meds given prn with partial relief, vss, assessments as charted, on 4l o2 via nasal canulla, o2sat stable, no acute distress noted, resting in bed, will continue to monitor
[2019-12-09 04:14] VITALS: BP 133/68
[2019-12-09 07:17] VITALS: BP 128/78
--- NOTE | 2019-12-09 09:18 | NUR ---
ASSESSMENT THIS AM, DID NOT REQUEST ANY PAIN MEDICATION AT THIS TIME. HE IS VERY POLITE AND AGREEABLE TO CARE PLAN AND OVER ALL GOAL FOR DISCHARGE TO HOME TODAY. PALLATIVE CARE IS THE NEW PLAN FOR DISCHARGE FROM REPORT OF NIGHT NURSE THIS AM, WILL FOLLOW UP WITH OUR INSOLE ROUNDER TODAY. ON 4L NC TODAY WHICH IS HIS BASELINE. THERAPY WILL BE SIGNING OFF FOR EVALUATION PRIOR TO DISCHARGE. NSR, NO ECTOPY. 4L NC DENIES NAUSEA THIS AM.
[2019-12-09] MEDS ORDERED: LORCET 5-325 M1 EACH PO (09:53)
[2019-12-09] MEDS ORDERED: LOPRESSOR50 PO (09:53)
[2019-12-09] MEDS ORDERED: DURAGESIC1 EACH TRANSDERM (09:53)
[2019-12-09 10:47] VITALS: BP 128/78
--- NOTE | 2019-12-09 10:49 | NUR ---
FAXED REFERRAL TO [facility] HH SPOKE WITH KARINA IN INTAKE SHE RECEIVED REFERRAL AND WILL ACCEPT PT TO DC TODAY,.
--- NOTE | 2019-12-09 10:55 | NUR ---
spoke with patient and . They prefer to begin with HH care and not pallative HH care. has brochures and information. They request [facility]. [place] environmental planner [place] arrange [place] which is today.
[2019-12-09 11:55] VITALS: BP 128/78
== END 2019-12-09 13:11 | disposition home health service (06) | DRG 388 ==
LOC: ER 19:05 → EROBS 21:48 → 2N 21:48
PROVIDERS: Emergency Medicine; Hospitalist; Internal Medicine Nephrology; Nurse Practitioner; Nurse Practitioner Family; ADMIT Hospitalist; ATTEND Hospitalist
PROC: 0D9670Z Drainage of Stomach with Drainage Device, Via Natural or Artificial Opening (ICD-10-PCS; principal; 2019-12-04)
DX: K56.609 Unspecified intestinal obstruction, unspecified as to partial versus complete obstruction (principal); E43 Unspecified severe protein-calorie malnutrition; K92.1 Melena; N17.9 Acute kidney failure, unspecified; D62 Acute posthemorrhagic anemia; K86.1 Other chronic pancreatitis; F11.20 Opioid dependence, uncomplicated; J96.11 Chronic respiratory failure with hypoxia; E87.2 Acidosis; R63.0 Anorexia; Z20.828 Contact with and (suspected) exposure to other viral communicable diseases; F41.9 Anxiety disorder, unspecified; M06.9 Rheumatoid arthritis, unspecified; E87.5 Hyperkalemia; I25.10 Atherosclerotic heart disease of native coronary artery without angina pectoris; I73.9 Peripheral vascular disease, unspecified; D75.89 Other specified diseases of blood and blood-forming organs; G89.4 Chronic pain syndrome; S30.1XXA Contusion of abdominal wall, initial encounter; J43.9 Emphysema, unspecified; I12.9 Hypertensive chronic kidney disease with stage 1 through stage 4 chronic kidney disease, or unspecified chronic kidney disease; G47.00 Insomnia, unspecified; N40.0 Benign prostatic hyperplasia without lower urinary tract symptoms; N18.2 Chronic kidney disease, stage 2 (mild); I72.3 Aneurysm of iliac artery; I72.4 Aneurysm of artery of lower extremity; F32.9 Major depressive disorder, single episode, unspecified; E83.42 Hypomagnesemia; Z99.81 Dependence on supplemental oxygen; Z95.1 Presence of aortocoronary bypass graft; I25.2 Old myocardial infarction; Z86.73 Personal history of transient ischemic attack (TIA), and cerebral infarction without residual deficits; Z87.891 Personal history of nicotine dependence; Z88.2 Allergy status to sulfonamides; Z88.8 Allergy status to other drugs, medicaments and biological substances; Z88.6 Allergy status to analgesic agent; Z91.041 Radiographic dye allergy status; X58.XXXA Exposure to other specified factors, initial encounter; Y93.89 Activity, other specified; Y92.89 Other specified places as the place of occurrence of the external cause; Y99.8 Other external cause status
CPT/HCPCS: 10081